=== PATIENT | male | born 1955 | race Asian ===

== ENCOUNTER 2017-07-15 12:11 | Day surgery (SDC) | payer OTHER ==
[2017-07-15 12:48] LABS: ADD MAN DIFF? NO
[2017-07-15 12:50] LABS: ABNORMAL IP MESSAGE 1; BASOPHILS % 0.5 % (0.0-2.0); EOSINOPHILS # 0.1 10^3/ul (0.0-0.5); EOSINOPHILS % 1.8 % (0.0-7.0); HEMATOCRIT 40.3 % (42.0-52.0); HEMOGLOBIN 12.2 g/dl (14.0-18.0); LYMPHOCYTES # 2.5 10^3/ul (0.8-2.9); LYMPHOCYTES % 37.9 % (15.0-51.0); MEAN CORPUSCULAR HEMOGLOBIN 16.1 pg (29.0-33.0); MEAN CORPUSCULAR HGB CONC 30.3 g/dl (32.0-37.0); MEAN CORPUSCULAR VOLUME 53.1 fl (82.0-101.0); MONOCYTE # 0.4 10^3/ul (0.3-0.9); MONOCYTES % 5.6 % (0.0-11.0); NEUTROPHIL # 3.5 10^3/ul (1.6-7.5); PLATELET COUNT 368 10^3/UL (140-415); POSITIVE DIFF @See below; RED BLOOD COUNT 7.59 10^6/ul (4.70-6.10); RED CELL DISTRIBUTION WIDTH 19.9 % (11.5-14.5)
[2017-07-15 12:50] LABS: WHITE BLOOD COUNT 6.6 10^3/ul (4.8-10.8)
[2017-07-15 13:03] LABS: ALANINE AMINOTRANSFERASE 49 IU/L (13-69); ALBUMIN 4.8 g/dl (3.3-4.9); ALBUMIN/GLOBULIN RATIO 1.37; ALKALINE PHOSPHATASE 74 IU/L (42-121); ANION GAP 15 (8-16); ASPARTATE AMINO TRANSFERASE 37 IU/L (15-46); BILIRUBIN,INDIRECT 0.5 mg/dl (0-1.1); BILIRUBIN,TOTAL 0.5 mg/dl (0.2-1.3); CARBON DIOXIDE 26 mmol/L (21-31); CHLORIDE 107 mmol/L (97-110); GLUCOSE 95 mg/dl (70-220); TOTAL PROTEIN 8.3 g/dl (6.1-8.1)
[2017-07-15 13:09] LABS: BLOOD UREA NITROGEN 18 mg/dl (7-20); CALCIUM 9.6 mg/dl (8.4-10.2); CREATININE 0.89 mg/dl (0.61-1.24); POTASSIUM 4.4 mmol/L (3.5-5.1); SODIUM 144 mmol/L (135-144)
[2017-07-15 13:23] LABS: INR 0.95; PROTIME 12.8 Sec (11.9-14.9)
[2017-07-15 13:24] LABS: PARTIAL THROMBOPLASTIN TIME 32.5 Sec (25.0-35.0)
[2017-07-15] MEDS ORDERED: BUPIVACAINE 0.25% (MPF) 30 ML INJ (13:37)
[2017-07-15] MEDS ORDERED: MIDAZOLAM 1 MG/ML 2 ML INJ ×2 (13:51→14:08)
[2017-07-15] MEDS ORDERED: FENTAnyl 50 MCG/ML VIAL (13:52)
[2017-07-15] MEDS: LIDOCAINE 2% (MDV) 20 ML INJ (14:13)
[2017-07-15] MEDS: BUPIVACAINE 0.5% (SDV) 30 ML INJ (14:14)
[2017-07-15] MEDS ORDERED: CEFAZOLIN 1 GM INJ (14:24)
[2017-07-15] MEDS ORDERED: ONDANSETRON 4 MG INJ (14:25)
[2017-07-15] MEDS: IBUPROFEN 800 MG TAB PO (15:30)
== END 2017-07-15 17:15 | disposition home or self-care (01) ==
LOC: SDS 12:11
DX: D17.0 Benign lipomatous neoplasm of skin and subcutaneous tissue of head, face and neck (principal); I10 Essential (primary) hypertension
CPT/HCPCS: 14040; 71045; 80053; 85025; 85610; 85730; 88307; 93005